=== PATIENT | male | born 1995 | race Caucasian/White ===

== ENCOUNTER 2018-11-08 14:08 | Emergency (ER) | payer OTHER ==
[~2018-11-08] VITALS: Ht 172.7 cm; Wt 127.3 kg
[2018-11-08 15:22] VITALS: BP 160/93
[2018-11-08] MEDS ORDERED: IBUPROFEN 800 MG TABLET PO ONE (16:00)
== END 2018-11-08 16:08 | disposition home or self-care (01) ==
LOC: EMS 14:12
DX: S60.032A Contusion of left middle finger without damage to nail, initial encounter (principal); L03.012 Cellulitis of left finger; F17.210 Nicotine dependence, cigarettes, uncomplicated; X58.XXXA Exposure to other specified factors, initial encounter; Y93.89 Activity, other specified; Y92.89 Other specified places as the place of occurrence of the external cause; Y99.8 Other external cause status

== ENCOUNTER 2019-05-17 12:09 | Emergency (ER) | payer SELFPAY ==
[~2019-05-17] VITALS: Ht 175.3 cm; Wt 104.5 kg
[2019-05-17] MEDS ORDERED: IBUPROFEN 600 MG TABLET PO ONE (15:30)
[2019-05-17] MEDS ORDERED: ACETAMINOPHEN 325 MG TABLET PO ONE (15:30)
[2019-05-17] MEDS ORDERED: PERTUSS(ACELL),DIPH,TET VAC/PF 0.5 ML VIAL IM ONE (15:30)
[2019-05-17 16:33] VITALS: BP 145/68
== END 2019-05-17 16:34 | disposition home or self-care (01) ==
LOC: EMS 12:13
DX: L02.31 Cutaneous abscess of buttock (principal); F17.210 Nicotine dependence, cigarettes, uncomplicated
CPT/HCPCS: 10060; 90471; 90715; 99406

== ENCOUNTER 2019-05-19 11:25 | Emergency (ER) | payer MEDICAID ==
[~2019-05-19] VITALS: Ht 170.2 cm; Wt 127.3 kg
[2019-05-19] MEDS ORDERED: ANTIBIOTIC PO (11:29)
[2019-05-19 12:40] VITALS: BP 139/72
== END 2019-05-19 13:14 | disposition home or self-care (01) ==
LOC: EMS 11:26
DX: Z48.01 Encounter for change or removal of surgical wound dressing (principal); F17.210 Nicotine dependence, cigarettes, uncomplicated

== ENCOUNTER 2019-05-21 11:07 | Emergency (ER) | payer MEDICAID ==
[~2019-05-21] VITALS: Ht 172.7 cm; Wt 127.3 kg
[~2019-05-21 11:07] MED LIST: ANTIBIOTIC PO
[2019-05-21] MEDS ORDERED: IBUP-2070 PO (11:15)
[2019-05-21 12:05] VITALS: BP 116/79
== END 2019-05-21 12:40 | disposition home or self-care (01) ==
LOC: EMS 11:10
DX: L02.31 Cutaneous abscess of buttock (principal); F17.210 Nicotine dependence, cigarettes, uncomplicated; Z48.00 Encounter for change or removal of nonsurgical wound dressing
CPT/HCPCS: 99406

== ENCOUNTER 2019-05-23 09:01 | Emergency (ER) | payer MEDICAID ==
[~2019-05-23] VITALS: Ht 172.7 cm; Wt 127.3 kg
[~2019-05-23 09:01] MED LIST changes: +IBUP-2070 PO
[2019-05-23 10:00] VITALS: BP 131/76
== END 2019-05-23 10:25 | disposition home or self-care (01) ==
LOC: EMS 09:04
DX: L05.01 Pilonidal cyst with abscess (principal); F17.210 Nicotine dependence, cigarettes, uncomplicated; Z48.00 Encounter for change or removal of nonsurgical wound dressing
CPT/HCPCS: 99406

== ENCOUNTER 2019-05-26 11:06 | Emergency (ER) | payer MEDICAID ==
[~2019-05-26] VITALS: Ht 170.2 cm; Wt 127.3 kg
[2019-05-26 11:08] VITALS: BP 130/64
== END 2019-05-26 12:15 | disposition home or self-care (01) ==
LOC: EMS 11:07
DX: L05.91 Pilonidal cyst without abscess (principal); R03.0 Elevated blood-pressure reading, without diagnosis of hypertension; F17.210 Nicotine dependence, cigarettes, uncomplicated; Z48.01 Encounter for change or removal of surgical wound dressing
CPT/HCPCS: 99406

== ENCOUNTER 2021-08-23 14:38 | Emergency (ER) | payer MEDICAID ==
[~2021-08-23] VITALS: Ht 177.8 cm; Wt 140.9 kg
[2021-08-23] MEDS ORDERED: IBUPROFEN 600 MG TABLET PO ONE (15:15)
[2021-08-23 15:50] VITALS: BP 136/85
== END 2021-08-23 15:59 | disposition home or self-care (01) ==
LOC: EMS 14:38
DX: S13.4XXA Sprain of ligaments of cervical spine, initial encounter (principal); M62.838 Other muscle spasm; X50.9XXA Other and unspecified overexertion or strenuous movements or postures, initial encounter; Y93.89 Activity, other specified; Y92.89 Other specified places as the place of occurrence of the external cause; Y99.8 Other external cause status
CPT/HCPCS: 99282; Z7502; Z7610

== ENCOUNTER 2022-09-06 19:36 | Emergency (ER) | payer MEDICAID ==
[~2022-09-06] VITALS: Ht 172.7 cm; Wt 141.0 kg
[2022-09-06 19:57] VITALS: BP 146/81
== END 2022-09-06 21:49 | disposition left against medical advice (07) ==
LOC: EMS 19:36
DX: R10.12 Left upper quadrant pain (principal); R11.0 Nausea; Z53.21 Procedure and treatment not carried out due to patient leaving prior to being seen by health care provider
CPT/HCPCS: 99281; Z7502

== ENCOUNTER 2022-11-03 17:13 | Emergency (ER) | payer MEDICAID ==
[~2022-11-03] VITALS: Ht 167.6 cm; Wt 140.9 kg
[2022-11-03] MEDS ORDERED: CEPH-558 PO (17:51)
[2022-11-03] MEDS ORDERED: DOXY-354 PO (17:51)
[2022-11-03] MEDS ORDERED: IBUP-1554 PO (17:51)
[2022-11-03 18:00] VITALS: BP 124/71
== END 2022-11-03 18:06 | disposition still patient (30) ==
LOC: EMS 17:14
DX: L72.3 Sebaceous cyst (principal)
CPT/HCPCS: 99283; Z7502

== ENCOUNTER 2024-04-11 10:10 | Emergency (ER) | payer MEDICAID ==
[~2024-04-11] VITALS: Ht 172.7 cm; Wt 177.3 kg
[~2024-04-11 10:10] MED LIST changes: -ANTIBIOTIC PO; +CEPH-558 PO; +DOXY-354 PO; +IBUP-1554 PO; -IBUP-2070 PO
[2024-04-11] MEDS: IBUPROFEN 800 MG TABLET PO ONE (12:09)
[2024-04-11 13:12] VITALS: BP 138/88; PULSE 96; RESP 18; TEMP 99.2; O2SAT 98
== END 2024-04-11 14:07 | disposition home or self-care (01) ==
LOC: EMS 10:10
DX: M79.671 Pain in right foot (principal)
CPT/HCPCS: 99283

== ENCOUNTER 2024-06-03 09:28 | Emergency (ER) | payer MEDICAID ==
[~2024-06-03] VITALS: Ht 167.6 cm; Wt 177.3 kg
[2024-06-03 09:33] VITALS: TEMP 98
[2024-06-03 11:51] VITALS: BP 129/78; PULSE 106; RESP 18; O2SAT 99
== END 2024-06-03 11:56 | disposition home or self-care (01) ==
LOC: EMS 09:33
DX: L05.91 Pilonidal cyst without abscess (principal)
CPT/HCPCS: 99281; Z7502

== ENCOUNTER 2024-09-24 16:04 | Emergency (ER) | payer MEDICAID ==
[~2024-09-24] VITALS: Ht 167.6 cm; Wt 186.4 kg
[2024-09-24 16:29] LABS: COVID AG,FIA SOURCE NASAL SWAB
[2024-09-24 16:48] LABS: INFLUENZA TYPE A NEGATIVE FOR TYPE A (NEGATIVE); INFLUENZA TYPE B NEGATIVE FOR TYPE B (NEGATIVE); SARS-COV2 (COVID) ANTIGEN,FIA Negative (Negative)
[2024-09-24] MEDS ORDERED: GUAIF600 PO (18:05)
[2024-09-24] MEDS ORDERED: BENZ-227 PO (18:05)
[2024-09-24 18:12] VITALS: BP 129/57; PULSE 88; RESP 18; TEMP 98.7; O2SAT 97
== END 2024-09-24 18:13 | disposition home or self-care (01) ==
LOC: EMS 16:04
DX: J06.9 Acute upper respiratory infection, unspecified (principal); Z20.822 Contact with and (suspected) exposure to COVID-19
CPT/HCPCS: 87804; 99283

== ENCOUNTER → 2025-01-22 | Emergency (ER) | payer MEDICAID ==
[~2025-01-22] VITALS: Ht 170.2 cm; Wt 172.7 kg
[~2025-01-22] MED LIST changes: +BENZ-227 PO; -CEPH-558 PO; +CLIN-142 PO; -DOXY-354 PO; +GUAIF600 PO; -IBUP-1554 PO
[2025-01-22 16:36] VITALS: TEMP 99.3
[2025-01-22] MEDS: LIDOCAINE 1% 10 ML VIAL SQ ONE (19:35)
[2025-01-22 21:30] VITALS: BP 145/80; PULSE 99; RESP 18; O2SAT 98
== END | disposition still patient (30) ==
LOC: EMS 16:33
DX: L02.416 Cutaneous abscess of left lower limb (principal); L03.116 Cellulitis of left lower limb; Z79.899 Other long term (current) drug therapy
CPT/HCPCS: 99283; 10060; J3490

== ENCOUNTER 2025-04-03 15:44 | Emergency (ER) | payer MEDICAID ==
[~2025-04-03] VITALS: Ht 170.2 cm; Wt 172.7 kg
[2025-04-03 15:52] VITALS: TEMP 97.9
[2025-04-03 16:24] VITALS: BP 133/78; PULSE 94; RESP 16; O2SAT 99
== END 2025-04-03 18:45 | disposition home or self-care (01) ==
LOC: EMS 15:44
DX: L02.11 Cutaneous abscess of neck (principal); Z79.899 Other long term (current) drug therapy
CPT/HCPCS: 99282; Z7502

== ENCOUNTER 2025-04-05 17:25 | Emergency (ER) | payer MEDICAID ==
[~2025-04-05] VITALS: Ht 170.2 cm; Wt 172.7 kg
[2025-04-05 17:32] VITALS: TEMP 97.3
[2025-04-05 18:03] VITALS: BP 132/88; PULSE 95; RESP 18; O2SAT 96
== END 2025-04-05 18:07 | disposition home or self-care (01) ==
LOC: EMS 17:37
DX: L02.11 Cutaneous abscess of neck (principal); Z79.899 Other long term (current) drug therapy
CPT/HCPCS: 99282; Z7502